=== PATIENT | male | born 1975 | race Caucasian/White ===

== ENCOUNTER 2016-12-02 11:57 | Emergency (ER) | payer BC, OTHER ==
[2016-12-02 12:14] VITALS: TEMP 97.7; BMI 32.4
[2016-12-02 12:51] LABS: AUTOMATED BASOPHIL 1.1 % (0-2); AUTOMATED EOSINOPHIL 3.8 % (0-5); AUTOMATED LYMPH 37.9 % (17-44); AUTOMATED MONOCYTE 9.9 % (3-10); AUTOMATED NEUTROPHIL 47.3 % (45-76); MPV 7.6 fL (7.4-10.4)
[2016-12-02 13:04] LABS: BLOOD UREA NITROGEN 11 MG/DL (9-20); CALCIUM 9.4 MG/DL (8.4-10.2); CALCULATED OSMOLALITY 268 MOs/Kg (270-290); CHLORIDE 102 mEq/L (98-107); GLUCOSE 92 MG/DL (70-99); SODIUM LEVEL 140 mEq/L (137-146); TOTAL PROTEIN 8.2 G/DL (6.3-8.2)
[2016-12-02 13:09] LABS: PARTIAL THROMB. TIME 27.3 SEC (22-35)
--- NOTE | 2016-12-02 13:33 | DIRPT ---
CLINICAL DATA: Hypertension EXAM: CHEST 2 VIEW COMPARISON: April 27, 2011 FINDINGS: There is mild scarring in the lateral left base. There is no edema or consolidation. Heart is upper normal in size with pulmonary vascularity within normal limits. No adenopathy. IMPRESSION: Mild scarring left base. No edema or consolidation. Electronically Signed By: Jerome Smart III, M.D. On: 12/02/2016 13:30
[2016-12-02] MEDS ORDERED: LISINOPRIL 20 MG TAB PO ONE (13:43)
--- NOTE | 2016-12-02 13:45 | EDPRACDOC ---
- General Information Chief Complaint: Blood Pressure (Problems) Stated Complaint: ELEVATED BP Time Seen by Provider: 12/02/16 13:34 Mode Of Arrival: Car Home Medications: Home Medications Lisinopril 20 mg PO DAILY #30 tablet 12/02/16 Allergies/Adverse Reactions: Allergies Allergy/AdvReac Type Severity Reaction Status Date / Time No Known Allergies Allergy Verified 12/02/16 12:13 - History of Present Illness Onset: TODAY HPI: PT PRESENTS WITH MARKEDLY ELEVATED BLOOD PRESSURES FOUND AT [facility] TODAY. HE USED TO BE ON BLOOD PRESSURE MEDICATION BUT TOOK HIMSELF OFF BECAUSE HE DID NOT THINK HE NEEDED IT ANYMORE. Symptoms: Reports: None Relevent History of: Reports: Hypertension Hypertension Treatment: Reports: Noncompliant Associated Signs and Symptoms: Reports: None ED Past Medical History - History Reviewed Yes Nurses notes reviewed and agree except as marked - Patient Medical History Neurological History: Reports: Seizures (CHILD) Cardiac History: Reports: Hypertension (OFF MEDS X 2YRS), Heart Attack (02/19) Systemic History: Denies: Cancer Surgical History: Reports: Tonsillectomy/Adnoidectomy - Social Medical History Lives With: Spouse Lives In: Home EDM Review of Systems - Review of Systems ROS Negative Except as Marked: Yes All systems reviewed and were negative except as marked Constitutional: negative: Fever Respiratory: negative: Shortness of Breath Cardiovascular: negative: Chest Pain Gastrointestinal: negative: Nausea, Pain, Vomiting Neurological: negative: Headache - Physical Exam Constitutional: Alert Oriented to: Time, Person, Place Last recorded Vital Signs: Last Vital Signs Temp 97.7 F 12/02/16 12:08 Pulse 84 12/02/16 12:42 Resp 18 12/02/16 12:42 BP 224/143 H 12/02/16 12:42 Pulse Ox 98 12/02/16 12:42 Oxygen Pulse Oxygen Saturation 98 O2 Device Oxygen Flow Rate Fraction of Inspired Oxygen ( FIO2) - HEENT Head: negative: Deformity, Laceration Neck: negative: Limited ROM - Respiratory/Cardiovascular Respiratory: Normal - CTA. negative: Accessory Muscle Use, Diminished, Tachypnea Cardiovascular: negative: Bradycardia, Tachycardia, Irregular - GI Auscultation: Normal Palpation: Normal Tenderness: Non tender - Musculoskeletal Extremities: Radial Pulse (PALPABLE) - Integumentary Skin: Warm, Dry. negative: Rash - Neurologic Memory Impaired: Normal Motor Function: Normal Mood Description: Appropriate Thought: Coherent Perception: Normal - Results 12/02/16 12:35 12/02/16 12:35 WBC 6.1 xk/uL (3.8-10.8) 12/02/16 12:35 RBC 5.55 xM/uL (4.70-6.10) 12/02/16 12:35 Hgb 16.4 g/dL (14.0-18.0) 12/02/16 12:35 Hct 46.6 % (42-52) 12/02/16 12:35 MCV 84 fL (80-94) 12/02/16 12:35 MCH 29.6 pg (27-32) 12/02/16 12:35 MCHC 35.2 g/dl (33-36) 12/02/16 12:35 RDW 13.3 % (11.5-14.5) 12/02/16 12:35 Plt Count 247 xk/uL (130-400) 12/02/16 12:35 MPV 7.6 fL (7.4-10.4) 12/02/16 12:35 Neut % (Auto) 47.3 % (45-76) 12/02/16 12:35 Lymph % (Auto) 37.9 % (17-44) 12/02/16 12:35 Hunt % (Auto) 9.9 % (3-10) 12/02/16 12:35 Eos % (Auto) 3.8 % (0-5) 12/02/16 12:35 Baso % (Auto) 1.1 % (0-2) 12/02/16 12:35 Absolute Neuts (auto) 2.87 xk/uL (1.7-8.2) 12/02/16 12:35 Absolute Lymphs (auto) 2.26 xk/uL (0.65-4.75) 12/02/16 12:35 PT 10.7 SEC (9.2-11.2) 12/02/16 12:35 INR 1.0 12/02/16 12:35 APTT 27.3 SEC (22-35) 12/02/16 12:35 Sodium 140 mEq/L (137-146) 12/02/16 12:35 Potassium 3.6 mEq/L (3.5-5.1) 12/02/16 12:35 Chloride 102 mEq/L (98-107) 12/02/16 12:35 Carbon Dioxide 27 mMOL/L (22-33) 12/02/16 12:35 Anion Gap 15 mEq/L (8-16) 12/02/16 12:35 BUN 11 MG/DL (9-20) 12/02/16 12:35 Creatinine 1.00 MG/DL (0.66-1.25) 12/02/16 12:35 Estimated GFR (MDRD) > 60 mL/min (>=60) 12/02/16 12:35 Glucose 92 MG/DL (70-99) 12/02/16 12:35 Calculated Osmolality 268 MOs/Kg (270-290) L 12/02/16 12:35 Calcium 9.4 MG/DL (8.4-10.2) 12/02/16 12:35 Total Bilirubin 1.5 MG/DL (0.2-1.3) H 12/02/16 12:35 AST 36 IU/L (17-59) 12/02/16 12:35 ALT 56 IU/L (21-72) 12/02/16 12:35 Alkaline Phosphatase 94 IU/L (38-126) 12/02/16 12:35 Troponin I < 0.01 ng/mL (<.04) 12/02/16 12:35 [id number] Pept 200 pg/mL (0-450) 12/02/16 12:35 Total Protein 8.2 G/DL (6.3-8.2) 12/02/16 12:35 Albumin 4.4 G/DL (3.5-5.0) 12/02/16 12:35 Lab Results 12/02/16 12/02/16 12/02/16 12:35 12:35 12:35 WBC 6.1 RBC 5.55 Hgb 16.4 Hct 46.6 MCV 84 MCH 29.6 MCHC 35.2 RDW 13.3 Plt Count 247 MPV 7.6 Neut % (Auto) 47.3 Lymph % (Auto) 37.9 Hunt % (Auto) 9.9 Eos % (Auto) 3.8 Baso % (Auto) 1.1 Absolute Neuts (auto) 2.87 Absolute Lymphs (auto) 2.26 PT 10.7 INR 1.0 APTT 27.3 Sodium 140 Potassium 3.6 Chloride 102 Carbon Dioxide 27 Anion Gap 15 BUN 11 Creatinine 1.00 Estimated GFR (MDRD) > 60 Glucose 92 Calculated Osmolality 268 L Calcium 9.4 Total Bilirubin 1.5 H AST 36 ALT 56 Alkaline Phosphatase 94 Troponin I < 0.01 [id number] Pept 200 Total Protein 8.2 Albumin 4.4 - EKG EKG #1 EKG Time: 12:31 -: Yes EKG interpreted by me Rate: bpm: 59 Rhythm: SB Hypertrophy: LVH ST: Nonsp Decision Time to Discharge: 14:25 - Departure Yes I personally saw and evaluated the patient. Disposition: Home Condition: Stable Final Diagnosis: Hypertension Instructions: Chronic Hypertension (ED) Education/Counseling Given To: Patient, Family Member Education/Counseling Given Regarding: Diagnosis, Treatment, Prognosis, Follow Up Referrals: Scott Clarke II, MD [Primary Care Provider] - Call for Appointment Prescriptions: Lisinopril 20 mg PO DAILY #30 tablet
[2016-12-02 14:25] VITALS: BP 202/127; PULSE 63
== END 2016-12-02 14:45 | disposition home or self-care (01) ==
LOC: ED 11:57
DX: I10 Essential (primary) hypertension (principal)
CPT/HCPCS: 36415; 71020; 80053; 83880; 84484; 85025; 85610; 85730; 93005; 99284; J3490